=== PATIENT | male | born 1985 | race Caucasian/White ===

== ENCOUNTER 2025-04-13 09:58 | Emergency (ER) | payer OTHER ==
[~2025-04-13] VITALS: Ht 165.1 cm; Wt 105.0 kg
[2025-04-13 10:09] VITALS: O2SAT 100
[2025-04-13] MEDS: IBUPROFEN 600MG TABLET PO ONE (11:28)
[2025-04-13 12:15] VITALS: BP 132/87; PULSE 87; RESP 18; TEMP 36.8; O2SAT 100
== END 2025-04-13 12:15 | disposition home or self-care (01) ==
LOC: ER 09:58
DX: M25.562 Pain in left knee (principal)
CPT/HCPCS: 73562; 99283